=== PATIENT | male | born 1970 | race Caucasian/White ===

== ENCOUNTER 2017-07-20 11:09 | Emergency (ER) | payer MEDICARE, MEDICAID ==
[2017-07-20 12:19] VITALS: BP 145/90
--- NOTE | 2017-07-20 13:01 | UC ---
Skin Complaint HPI - HPI Summary HPI Summary: pt presents with a friend whom also assists with caretaking of him due to cerebral palsy. they note he has a painful wound to his L thigh that began as a blister on 07/11/17. they note it weeps a lot. today, his friend noted a bad odor from the site. HCR comes in 3 x's a week and changes his dressing. HCR has advised he f/u with wound care but pt is refusing. they note he has a hx of wounds and has been to the [facility] wound center where he notes they cleaned a wound without numbing it which was very painful. as a result, pt is refusing to go back to that wound center. certified social workers in health care also notes he has chronic wounds between his toes that HCR wraps as well. she notes they appear unchanges(not red and no drainage). they deny fever, n/v, hx mrsa. - History of Current Complaint Chief Complaint: UCLowerExtremity Time Seen by Provider: 07/20/17 12:00 Stated Complaint: LEFT HAMSTRING WOUND Hx Obtained From: Patient, Family/Drier Tender Naphthalene Onset/Duration: Gradual Onset Timing: Constant Pain Intensity: 8 Aggravating Factor(s): Touch Alleviating Factor(s): Nothing Associated Signs & Symptoms: Negative: Fever Related History: Other: - mostly WC and bed bound due to his cerebral palsy - Allergy/Home Medications Allergies/Adverse Reactions: Allergies Allergy/AdvReac Type Severity Reaction Status Date / Time erythromycin base Allergy Vomiting Verified 07/20/17 12:20 wool Allergy Itching Verified 07/20/17 12:20 Review of Systems Constitutional: Negative Skin: Other - wound L thigh and both feet Eyes: Negative ENT: Negative Respiratory: Negative Cardiovascular: Negative Gastrointestinal: Negative Genitourinary: Negative Motor: Negative Neurovascular: Negative Musculoskeletal: Other: - c/w his CP Neurological: Negative Psychological: Negative Is Patient Immunocompromised?: No All Other Systems Reviewed And Are Negative: Yes PMH/Surg Hx/FS Hx/Imm Hx - Additional Past Medical History Additional PMH: chronic pain, cerebral palsy, neuropathy Endocrine History: Dyslipidemia Cardiovascular History: Hypertension Respiratory History: Asthma - Surgical History Surgical History: Yes Surgery Procedure, Year, and Place: tendon releases legs, posterior and anteriorly, right arm - Family History Known Family History: Positive: Diabetes - Social History Occupation: Disabled Lives: Assisted Living - has a roommate and home care Alcohol Use: Occasionally Substance Use Type: None Smoking Status (MU): Former Smoker - Immunization History Vaccination Up to Date: Yes Physical Exam Triage Information Reviewed: Yes Appearance: Well-Appearing Vital Signs: Initial Vital Signs Temp 100.8 F 07/20/17 12:00 Pulse 94 07/20/17 12:00 Resp 20 07/20/17 12:00 BP 145/90 07/20/17 12:00 Pulse Ox 99 07/20/17 12:00 Vital Signs Reviewed: Yes Eyes: Positive: Conjunctiva Clear ENT: Positive: Pharynx normal, TMs normal. Negative: Nasal congestion, Nasal drainage Neck: Positive: Supple, Nontender, No Lymphadenopathy Respiratory: Positive: Lungs clear, Normal breath sounds Cardiovascular: Positive: RRR, No Murmur Abdomen Description: Positive: Nontender, No Organomegaly, Soft Bowel Sounds: Positive: Present Musculoskeletal: Positive: Other: - c/w cerebral palsy Neurological: Positive: Alert Psychological: Positive: Age Appropriate Behavior Skin Exam: Normal, Other - 3cm superficial ulcer L posterior - medial thigh. weeping clear fluid on dressing. no odor. base is red. pt refused to allow exam of feet, would not remove the dressing. Course/Dx - Course Course Of Treatment: temp of 100.8 raises concern for infection. could be from the thigh or the feet which he refused to allow myself to examine. no other sources of infection identified. since no hx mrsa, will cover with keflex. will also tx the ulcer with silvadene daily. i did culture pt wound and redress with sterile gauze at time of exam which is all the pt would allow for. pt and friend requesting a referal to local wound care in [place] because transportaion is very difficult for him. he has a F/U appt with his pcp dr xaio and they request [facility] wound / surgery thus that was provided as well. i should note that pt was advised that this fever could represent a much worse infection including the feet. i suggest they consider an Er evaluation which he flat out refused thus I will tx to the best of my ability from with close f/u. Elevated BP but has HTN plus stress from visit and pain. - Diagnoses Provider Diagnoses: Pressure ulcer L posterior thigh. Discharge - Sign-Out/Discharge Documenting (check all that apply): Discharge/Admit/Transfer - Discharge Plan Condition: Stable Disposition: HOME Prescriptions: Cephalexin CAP* [Keflex CAP*] 500 mg PO TID #30 cap Silver Sulfadiazine [Silvadene] 50 gm TP DAILY #1 cream..g. Patient Education Materials: Pressure Ulcer (ED) Referrals: Suly Xiao MD [Primary Care Provider] - 1 Day Glenroy Epps [Medical Doctor] - 1 Day - Billing Disposition and Condition Condition: STABLE Disposition: HOME
== END 2017-07-20 13:17 | disposition home or self-care (01) ==
LOC: UCCORT 11:09
DX: L89.899 Pressure ulcer of other site, unspecified stage (principal); G89.29 Other chronic pain; G80.9 Cerebral palsy, unspecified; G62.9 Polyneuropathy, unspecified; E78.5 Hyperlipidemia, unspecified; I10 Essential (primary) hypertension; J45.909 Unspecified asthma, uncomplicated; Z83.3 Family history of diabetes mellitus; Z87.891 Personal history of nicotine dependence; Z88.3 Allergy status to other anti-infective agents
CPT/HCPCS: 87070; 87205; 99202; G0463

== ENCOUNTER 2021-05-08 14:37 | Inpatient (IN) ==
[2021-05-08] MEDS ORDERED: Naloxone 0.4 mg VIAL 0.4 mg/ml 1 ml VIAL IV PUSH ONE (15:00)
[2021-05-08 15:20] LABS: ABS Eosinophils 0.1 10^3/ul (0-0.6); ABS Lymphocytes 0.9 10^3/ul (1.0-4.8); ABS Monocytes 0.4 10^3/ul (0-0.8); ABS Neutrophils 5.7 10^3/ul (1.5-7.7); Eosinophil % 0.9 %; Hematocrit 37 % (42-52); Hemoglobin 12.8 g/dL (14.0-18.0); Lymphocyte % 12.7 %; Mean Corpuscular HGB Conc 34 g/dL (31-36); Mean Corpuscular Hemoglobin 30 pg (27-31); Mean Corpuscular Volume 88 fL (80-94); Mean Platelet Volume 8.3 fL (7.4-10.4); Nucleated Red Blood Cells % 0.1; Platelet Count 163 10^3/uL (150-450); Red Blood Count 4.24 10^6 /uL (4.18-5.48); Red Cell Distribution Width 14 % (10-15); White Blood Count 7.1 10^3/uL (3.5-10.8)
[2021-05-08 15:28] LABS: Activated Partial Thrombo Time 32.7 seconds (26.0-38.0); INR 1.13 (0.86-1.15)
[2021-05-08] MEDS ORDERED: NS 0.9% 1000 ml BAG 1,000 ML IV ONE (15:29)
[2021-05-08 15:43] LABS: High Sens Troponin Baseline < 3 pg/mL (<20)
[2021-05-08 16:11] LABS: PCO2 Arterial 44 mmHg (35-45); PO2 Arterial 170 mmHg (80-100)
[2021-05-08 16:18] LABS: ALT 38 U/L (7-52); AST 52 U/L (13-39); Albumin 4.5 g/dL (3.2-5.2); Albumin/Globulin Ratio 1.6 (1-3); Alcohol, S < 13 mg/dL (<13); Alkaline Phosphatase 41 U/L (35-149); Anion Gap 10 mmol/L (2-11); Blood Urea Nitrogen 12 mg/dL (6-24); C Reactive Protein 4.86 mg/L (<8.01); CO2 Carbon Dioxide 30 mmol/L (22-32); Calcium 9.2 mg/dL (8.6-10.3); Chloride 101 mmol/L (101-111); Globulin 2.8 g/dL (2-4); Glucose 165 mg/dL (70-100); Sodium 141 mmol/L (135-145); Total Protein 7.3 g/dL (6.4-8.9); eGFR CKD-EPI 106.7 (>60)
[2021-05-08 16:40] LABS: Urine Appearance Clear; Urine Bilirubin Negative (Negative); Urine Blood Negative (Negative); Urine Color Yellow; Urine Glucose Negative (Negative); Urine Ketones Negative (Negative); Urine Nitrite Negative (Negative); Urine Protein Negative (Negative); Urine Specific Gravity 1.009 (1.002-1.030); Urine Urobilinogen Negative (Negative)
[2021-05-08 16:48] LABS: Urine Benzodiazepine Screen None Detected (None Detect); Urine Cannabinoids Screen None Detected (None Detect); Urine Opiates Screen None Detected (None Detect)
[2021-05-08 17:31] LABS: High Sensitivity Troponin 1 Hr < 3 pg/mL (<20)
[2021-05-08] MEDS ORDERED: Piperacillin/Tazobac ADVAN 3.375 GM in NS 0.9% 100 ml BAG 100 ML IV ONE (18:18)
[2021-05-08] MEDS ORDERED: Zosyn per Pharmacy NOTE FOLLOW UP SCH (19:00)
[2021-05-08 19:42] LABS: Body Fluid Source Cerebral Spinal
[2021-05-08 21:20] LABS: Body Fluid Appearance Bloody; Body Fluid Color Pink; CSF Tube # 1
[2021-05-08 21:31] LABS: Body Fluid Mono 3 %; Body Fluid Total Cells Counted 151
[2021-05-08 21:53] LABS: Body Fluid WBC 320 /mcL
[2021-05-08] MEDS ORDERED: Lactated Ringers 1000 ml BAG 1,000 ML IV ONE (22:21)
[2021-05-08] MEDS: KCL 20 MEQ/100 ML IVPREMIX 20 MEQ/100 ML BAG IV SCH (22:53)
[2021-05-08] MEDS ORDERED: Vancomycin per Pharmacy 1 EA NOTE FOLLOW UP SCH (23:00)
[2021-05-08] MEDS ORDERED: Vancomycin 1,500 MG in NS 0.9% 250 ml 250 ML IVPB ONE (23:00)
[2021-05-08] MEDS ORDERED: Linezolid 600 MG IVPREMIX(*) 600 MG/300 ML BAG IVPB SCH (23:00)
[2021-05-08] MEDS: cefTRIAXone 2 GM ADDV.VIAL 2 GM in NS 0.9% 100 ml BAG 100 ML IV SCH (23:06)
[2021-05-08] MEDS: Ampicillin ADVAN 2 GM in NS 0.9% 100 ml BAG 100 ML IVPB SCH (23:12)
[2021-05-08 23:15] LABS: CSF Glucose 89 mg/dL (40-70)
[2021-05-09] MEDS: Enoxaparin 40 MG/0.4 ML SYR SUBCUT SCH ×2 (00:57→17:13)
[2021-05-09] MEDS ORDERED: ZOSYN 3.375 GM Q8H per EXTENDED INFUSION IV SCH (01:00)
[2021-05-09] MEDS: ACYCLOVIR IVPB SCH ×3 (01:10→18:10)
[2021-05-09] MEDS: KCL 20 MEQ/100 ML IVPREMIX 20 MEQ/100 ML BAG IV SCH ×2 (01:10→03:32)
[2021-05-09] MEDS: NS 0.9% IVPB SCH ×3 (01:10→18:10)
[2021-05-09 03:15] LABS: Phosphorus 3.1 mg/dL (2.5-5.0)
[2021-05-09 04:59] LABS: Hematocrit 34 % (42-52); Hemoglobin 11.5 g/dL (14.0-18.0); Mean Corpuscular HGB Conc 34 g/dL (31-36); Mean Corpuscular Hemoglobin 30 pg (27-31); Mean Corpuscular Volume 90 fL (80-94); Mean Platelet Volume 8.5 fL (7.4-10.4); Platelet Count 142 10^3/uL (150-450); Red Blood Count 3.82 10^6 /uL (4.18-5.48); Red Cell Distribution Width 14 % (10-15); White Blood Count 4.7 10^3/uL (3.5-10.8)
[2021-05-09 05:33] LABS: Calcium 8.8 mg/dL (8.6-10.3); Magnesium 1.8 mg/dL (1.9-2.7); Potassium 3.9 mmol/L (3.5-5.0); eGFR CKD-EPI 113.6 (>60)
[2021-05-09] MEDS: Ampicillin ADVAN 2 GM in NS 0.9% 100 ml BAG 100 ML IVPB SCH ×4 (05:33→22:03)
[2021-05-09] MEDS ORDERED: Magnesium Sulfate 2 gm BAG 2 GM/50 ML BAG IVPB ONE (07:42)
[2021-05-09 08:03] LABS: Phosphorus 2.8 mg/dL (2.5-5.0)
[2021-05-09] MEDS ORDERED: Lactulose 30 ml UDC PO SCH (09:00)
[2021-05-09] MEDS ORDERED: Lactated Ringers 1000 ml BAG 1,000 ML IV SCH (10:00)
[2021-05-09 10:05] LABS: C Reactive Protein 6.64 mg/L (<8.01)
[2021-05-09 11:34] LABS: Erythrocyte Sed Rate 7 mm/Hr (0-19)
[2021-05-09] MEDS: Vancomycin 1,250 MG in NS 0.9% 250 ml 250 ML IVPB SCH (13:21)
[2021-05-09] MEDS: cefTRIAXone 2 GM ADDV.VIAL 2 GM in NS 0.9% 100 ml BAG 100 ML IV SCH (23:50)
[2021-05-10] MEDS: Vancomycin 1,250 MG in NS 0.9% 250 ml 250 ML IVPB SCH (00:45)
[2021-05-10] MEDS: NS 0.9% IVPB SCH ×3 (00:46→15:44)
[2021-05-10] MEDS: ACYCLOVIR IVPB SCH ×3 (00:46→15:44)
[2021-05-10] MEDS: Ampicillin ADVAN 2 GM in NS 0.9% 100 ml BAG 100 ML IVPB SCH ×4 (05:27→22:17)
[2021-05-10 06:13] LABS: Calcium 8.6 mg/dL (8.6-10.3); Magnesium 2.2 mg/dL (1.9-2.7); Potassium 3.8 mmol/L (3.5-5.0); eGFR CKD-EPI 115.7 (>60)
[2021-05-10 06:17] LABS: Hematocrit 33 % (42-52); Hemoglobin 10.9 g/dL (14.0-18.0); Mean Corpuscular HGB Conc 33 g/dL (31-36); Mean Corpuscular Hemoglobin 30 pg (27-31); Mean Corpuscular Volume 90 fL (80-94); Mean Platelet Volume 8.6 fL (7.4-10.4); Platelet Count 134 10^3/uL (150-450); Red Blood Count 3.66 10^6 /uL (4.18-5.48); Red Cell Distribution Width 14 % (10-15)
[2021-05-10] MEDS ORDERED: Vancomycin Trough Check NOTE FOLLOW UP ONE (11:30)
[2021-05-10] MEDS: Enoxaparin 40 MG/0.4 ML SYR SUBCUT SCH (17:13)
[2021-05-10] MEDS ORDERED: Gadoteridol (CONTRAST) 279.3 MG/ML 10 ML IV ONE (18:49)
[2021-05-10] MEDS: cefTRIAXone 2 GM ADDV.VIAL 2 GM in NS 0.9% 100 ml BAG 100 ML IV SCH (23:24)
[2021-05-11] MEDS: ACYCLOVIR IVPB SCH ×3 (00:52→15:17)
[2021-05-11] MEDS: NS 0.9% IVPB SCH ×3 (00:52→15:17)
[2021-05-11] MEDS: Ampicillin ADVAN 2 GM in NS 0.9% 100 ml BAG 100 ML IVPB SCH (05:18)
[2021-05-11 05:53] LABS: Hematocrit 34 % (42-52); Hemoglobin 11.3 g/dL (14.0-18.0); Mean Corpuscular HGB Conc 33 g/dL (31-36); Mean Corpuscular Hemoglobin 30 pg (27-31); Mean Corpuscular Volume 90 fL (80-94); Mean Platelet Volume 8.4 fL (7.4-10.4); Platelet Count 149 10^3/uL (150-450); Red Blood Count 3.73 10^6 /uL (4.18-5.48); Red Cell Distribution Width 14 % (10-15); White Blood Count 3.5 10^3/uL (3.5-10.8)
[2021-05-11 06:19] LABS: Potassium 3.9 mmol/L (3.5-5.0); eGFR CKD-EPI 114.1 (>60)
[2021-05-11 07:45] LABS: ABS Eosinophils 0.1 10^3/ul (0-0.6); ABS Lymphocytes 1.1 10^3/ul (1.0-4.8); ABS Monocytes 0.4 10^3/ul (0-0.8); ABS Neutrophils 1.9 10^3/ul (1.5-7.7); Lymphocyte % 30.6 %
[2021-05-11] MEDS ORDERED: Ondansetron 4 mg VIAL 2 MG/ML 2 ml VIAL IV PRN (12:12)
[2021-05-11] MEDS: Enoxaparin 40 MG/0.4 ML SYR SUBCUT SCH (17:46)
[2021-05-12] MEDS: ACYCLOVIR IVPB SCH ×3 (01:00→16:35)
[2021-05-12] MEDS: NS 0.9% IVPB SCH ×3 (01:00→16:35)
[2021-05-12 08:24] LABS: Hematocrit 34 % (42-52); Hemoglobin 11.6 g/dL (14.0-18.0); Mean Corpuscular HGB Conc 34 g/dL (31-36); Mean Corpuscular Hemoglobin 31 pg (27-31); Mean Corpuscular Volume 90 fL (80-94); Mean Platelet Volume 8.1 fL (7.4-10.4); Platelet Count 169 10^3/uL (150-450); Red Blood Count 3.81 10^6 /uL (4.18-5.48); Red Cell Distribution Width 14 % (10-15); White Blood Count 4.8 10^3/uL (3.5-10.8)
[2021-05-12 08:45] LABS: ABS Eosinophils 0.2 10^3/ul (0-0.6); ABS Lymphocytes 1.2 10^3/ul (1.0-4.8); ABS Monocytes 0.4 10^3/ul (0-0.8); ABS Neutrophils 2.9 10^3/ul (1.5-7.7); Eosinophil % 3.5 %; Lymphocyte % 25.9 %; Nucleated Red Blood Cells % 0.1
[2021-05-12 08:51] LABS: Calcium 9.9 mg/dL (8.6-10.3); Potassium 4.4 mmol/L (3.5-5.0); eGFR CKD-EPI 110.6 (>60)
[2021-05-12] MEDS: Enoxaparin 40 MG/0.4 ML SYR SUBCUT SCH (18:20)
[2021-05-13] MEDS: NS 0.9% IVPB SCH ×4 (01:43→23:57)
[2021-05-13] MEDS: ACYCLOVIR IVPB SCH ×4 (01:43→23:57)
[2021-05-13] MEDS: Nystatin TOP POWDER 15 GM BTL TOPICAL SCH ×2 (15:52→20:33)
[2021-05-13] MEDS: Enoxaparin 40 MG/0.4 ML SYR SUBCUT SCH (17:05)
[2021-05-14 06:58] VITALS: BP 131/76
[2021-05-14] MEDS: NS 0.9% IVPB SCH (08:48)
[2021-05-14] MEDS: ACYCLOVIR IVPB SCH (08:48)
[2021-05-14] MEDS: Nystatin TOP POWDER 15 GM BTL TOPICAL SCH (09:51)
[2021-05-14 11:57] LABS: Rapid COVID-19 Molecular Undetected (Undetected)
== END 2021-05-14 13:20 | DRG 98 ==
LOC: ED 14:37 → ICU 15:28 → EDHOLD 16:52 → SUATTDRO 16:52 → ICU 21:21 → MED 05-09 17:32
PROVIDERS: ADMIT Internal Medicine; ATTEND Internal Medicine